=== PATIENT | female | born 1935 | race Caucasian/White ===

== ENCOUNTER 2024-10-05 07:27 | Day surgery (SDC) | payer MEDICARE, OTHER ==
[~2024-10-05] VITALS: Ht 160 cm; Wt 52.3 kg
[~2024-10-05 07:27] MED LIST: LISI20TA28 PO; [UNRECOGNIZED DRUG - NUTRITION]
[2024-10-05 07:53] VITALS: BP 137/82; PULSE 78; RESP 13; TEMP 98.8
[2024-10-05] MEDS ORDERED: midazolam 1 mg/ML 2ml injection ONE (08:41)
[2024-10-05] MEDS ORDERED: propofol inj 20 ML IV ONE (08:41)
[2024-10-05] MEDS ORDERED: fentaNYL/PF 50MCG/1 ML 2ML syringe ONE (08:41)
[2024-10-05 09:40] VITALS: BP 135/69; PULSE 69; RESP 12; O2SAT 99
[2024-10-05 09:50] VITALS: BP 134/65; PULSE 74; RESP 12; O2SAT 98
[2024-10-05 10:00] VITALS: BP 132/71; PULSE 71; RESP 15; O2SAT 99
== END 2024-10-05 10:10 | disposition home or self-care (01) ==
LOC: GI LAB 07:27
PROVIDERS: ATTEND Internal Medicine Gastroenterology
DX: K52.9 Noninfective gastroenteritis and colitis, unspecified (principal); R63.0 Anorexia; K31.89 Other diseases of stomach and duodenum; I10 Essential (primary) hypertension; Z85.038 Personal history of other malignant neoplasm of large intestine; Z86.0100 Personal history of colon polyps, unspecified; Z91.013 Allergy to seafood; Z68.1 Body mass index [BMI] 19.9 or less, adult
CPT/HCPCS: 43239; 45380; J2250; J2704; J3010; J7030; 88305